=== PATIENT | female | born 1985 | race Caucasian/White ===

== ENCOUNTER → 2019-09-22 06:56 | Outpatient (CLI) | payer OTHER, SELFPAY ==
--- NOTE | 2019-09-22 | DI.US.S_ITS ---
PROCEDURE: US ABDOMEN COMPLETE INDICATIONS: DYSPEPSIA TECHNIQUE: Real-time scanning was performed of the abdominal and retroperitoneal organs, with image documentation. COMPARISON: None. FINDINGS: Liver: Liver is normal in size and homogeneous in echotexture. Gallbladder: Gallbladder is unremarkable. Wall thickness is within normal limits measuring 1.7. Biliary ducts: Intrahepatic bile ducts are non-dilated. Extrahepatic bile duct caliber measures 3.4 mm. Normal is 6-7 mm or less in diameter, or 10 mm or less post-cholecystectomy. Pancreas: Visualized portions of the pancreas are sonographically normal. Spleen: Spleen is normal in size and homogeneous in echotexture. Kidneys: Kidneys are normal in size and echotexture. Right kidney measures 11.6 cm long; left kidney measures 10.3 cm long. No hydronephrosis or nephrolithiasis. No solid masses. Aorta: Visualized aorta is normal in caliber at less than 3 cm. Iliacs: Proximal common iliac arteries are normal in caliber at less than 2.5 cm. IVC: Intrahepatic inferior vena cava is patent. Miscellaneous: No free abdominal fluid. IMPRESSION: Unremarkable exam. Dictated by: Tracey Faulkner M.D. on 09/22/2019 at 10:43 Approved by: Tracey Faulkner M.D. on 09/22/2019 at 10:44
== END ==
PROVIDERS: Visit Provider Family Medicine
DX: R10.13 Epigastric pain (principal)
CPT/HCPCS: 76700

== ENCOUNTER → 2020-11-23 10:02 | Outpatient (CLI) | payer OTHER, SELFPAY ==
--- NOTE | 2020-11-23 | DI.RAD.S_ITS ---
PROCEDURE: XR FOOT LT MIN 3V INDICATIONS: LEFT FOOT TRAUMA TECHNIQUE: 3 views of the foot were acquired. COMPARISON: None. FINDINGS: Bones: No fractures or dislocations. No suspicious bony lesions. Soft tissues: No tibiotalar joint effusion. Achilles tendon appears normal. IMPRESSION: No fracture. If the patient's symptoms do not improve recommend followup radiographs in 10 days to assess for healing sclerosis/occult injury. Dictated by: Neel Guzman M.D. on 11/23/2020 at 12:22 Approved by: Neel Guzman M.D. on 11/23/2020 at 12:35
== END ==
PROVIDERS: Referring Provider Family Medicine; Visit Provider Family Medicine
DX: S99.922A Unspecified injury of left foot, initial encounter (principal)
CPT/HCPCS: 73630

== ENCOUNTER → 2021-02-27 15:39 | Outpatient (ROUT) | payer OTHER, SELFPAY ==
[2021-02-27 16:19] LABS: COVID19 -Nasal RAPID Negative (Negative)
== END ==
PROVIDERS: Visit Provider Family Medicine
DX: Z86.16 Personal history of COVID-19 (principal)
CPT/HCPCS: 87635

== ENCOUNTER → 2021-03-02 12:22 | Outpatient (ROUT) | payer OTHER, SELFPAY ==
[2021-03-02 13:00] LABS: COVID19 -Nasal RAPID Negative (Negative)
== END ==
PROVIDERS: Visit Provider Family Medicine
DX: Z20.822 Contact with and (suspected) exposure to COVID-19 (principal)
CPT/HCPCS: 87635

== ENCOUNTER → 2021-03-27 15:18 | Outpatient (ROUT) | payer OTHER, SELFPAY ==
[2021-03-27 16:05] LABS: COVID19 -Nasal RAPID Negative (Negative)
== END ==
PROVIDERS: Visit Provider Family Medicine
DX: Z20.822 Contact with and (suspected) exposure to COVID-19 (principal)
CPT/HCPCS: 87635

== ENCOUNTER → 2022-10-30 13:25 | Outpatient (ROUT) | payer OTHER, SELFPAY ==
[2022-10-30 16:27] LABS: Influenza A - CEPHEID Flu A POSITIVE (NEGATIVE); Influenza B - CEPHEID Flu B NEGATIVE (NEGATIVE); Respiratory Syncytial Virus Negative (Negative)
[2022-10-30 16:30] LABS: COVID-19 CEPHEID 4-PLEX PCR Negative (Negative)
== END ==
PROVIDERS: Visit Provider Family Medicine
DX: R68.89 Other general symptoms and signs (principal)
CPT/HCPCS: 0241U

== ENCOUNTER 2023-07-26 10:00 | Emergency (ER) | payer OTHER, SELFPAY ==
[2023-07-26 10:04] VITALS: BP 125/76; PULSE 102; RESP 15; TEMP 36.9; O2SAT 98; BMI 30.9
--- NOTE | 2023-07-26 10:19 | ED_ITS ---
HPI - General Adult General Chief complaint: Upper Respiratory Symptoms Stated complaint: seen T-3/hurts to talk/breath/swallow/ think strep Time Seen by Provider: 07/26/23 10:13 Source: patient Mode of arrival: Ambulatory History of Present Illness HPI narrative: 37-year-old female nonsmoker without chronic medical history presents for e valuation of sore throat and known strep. She states she was at [facility]'s Emergency Department a few days ago and was told she had strep, she was given fluids and some steroids as well as 1st dose of amoxicillin and a prescription for more. She admits to having taken 4 doses of her amoxicillin and states that her throat hurts worse than it did. She is having trouble eating and drinking, she becomes dizzy, weak and lightheaded, particularly upon standing. She denies any chest pain or shortness of breath, she has mild nausea but denies any vomiting, abdominal pain or diarrhea. She has developed a few days of dysuria, frequency, and urgency as well. Related Data Allergies Allergy/AdvReac Type Severity Reaction Status Date / Time latex Allergy Verified 07/26/23 10:04 Review of Systems Review of Systems Narrative: GENERAL: See HPI HEENT: See HPI RESPIRATORY: Denies dyspnea, cough, wheezing, hemoptysis, sputum. CARDIOVASCULAR: Denies chest pain, palpitations, orthopnea, edema, GASTROINTESTINAL: Denies nausea, vomiting, abdominal pain, diarrhea, constipation, melena. : See HPI MUSCULOSKELETAL: denies weakness, joint pain, or bony pain SKIN: Denies rash, skin lesions, or other NEUROLOGIC: Denies weakness, headache, numbness, change in speech, confusion, seizures, incoordination. PSYCHIATRIC: No concerning psychosocial issues. 12 point review of systems is negative except for those stated above Patient History Social History Smoking Status: Unknown if ever smoked Smoking Status: Unknown if ever smoked alcohol intake frequency: holidays/special occasions only Substance Use Type: does not use Exam Narrative Exam Narrative: GENERAL: [37] year old patient appears stated age. Well-developed patient, in mild distress. HEAD: Atraumatic. Normocephalic. EYES: Pupils equal round and reactive. Extraocular motions intact. No scleral icterus. No injection or drainage. ENT: Dry mucous membranes Nose without bleeding, purulent drainage. Pharyngeal erythema with tonsillar swelling and exudate bilaterally, no obvious mass effect or uvular pointing to suggest abscess NECK: Trachea midline. Tender anterior lymphadenopathy CARDIOVASCULAR: Tachycardic but regular rhythm without murmurs, gallops, or rubs. RESPIRATORY: Clear to auscultation. Breath sounds equal bilaterally. No wheezes, rales, or rhonchi. GASTROINTESTINAL: Abdomen soft, non-tender, nondistended. EXTREMITIES: No edema or joint tenderness. BACK: Nontender without deformity or crepitance. No flank tenderness. NEURO: AOx3. SKIN: No rash or erythema of visible areas Initial Vital Signs Initial Vital Signs: Vital Signs Temperature 98.4 F 07/26/23 10:04 Pulse Rate 102 H 07/26/23 10:04 Respiratory Rate 15 07/26/23 10:04 Blood Pressure 125/76 07/26/23 10:04 Pulse Oximetry 98 07/26/23 10:04 Oxygen Delivery Method Room Air 07/26/23 10:04 Course Orders Ordered: ED Orders 07/26/23 11:08 Basic Metabolic Panel Stat COVID19 -Nasal RAPID Stat Complete Blood Count AUTO DIFF Stat Monotest Stat Discontinued Medications Dexamethasone (Dexamethasone 10 Mg/Ml Vial) 20 mg IV NOW ONE Stop: 07/26/23 10:38 Last Admin: 07/26/23 11:06 Dose: 20 mg Documented By: SERAFIN Sodium Chloride (Normal Saline 0.9%) 1,000 mls @ 1,000 mls/hr IV BOLUS ONE Stop: 07/26/23 11:36 Last Infusion: 07/26/23 12:21 Dose: 0 mls/hr Documented By: Admin: 07/26/23 11:06 Dose: 1,000 mls/hr Documented By: SERAFIN Ketorolac Tromethamine (Ketorolac 30 Mg/Ml Vial) 15 mg IV NOW ONE Stop: 07/26/23 10:38 Last Admin: 07/26/23 11:07 Dose: 15 mg Documented By: SERAFIN Penicillin G Benzathine (Penicillin G Benzathine 1,200,000 Unit/2 Ml Syringe) 1,200,000 unit IM NOW ONE Stop: 07/26/23 12:46 Last Admin: 07/26/23 13:02 Dose: 1,200,000 unit Documented By: JAYSON Reevaluation(s) Reevaluation #1: Patient has significant improvement after above-stated therapies Vital Signs Vital signs: Vital Signs - 8 hr 07/26/23 13:15 Pulse Rate 88 Respiratory Rate 18 Blood Pressure 115/79 Pulse Oximetry 97 Oxygen Delivery Method Room Air Medical Decision Making Lab Data 07/26/23 11:08 07/26/23 11:08 Labs: Lab Results 07/26/23 07/26/23 07/26/23 Range/Units 10:14 11:08 11:08 WBC 5.9 (4.5-11.0) X10^3/uL RBC 4.14 (4.0-5.2) X10^6/uL Hgb 13.0 (12.0-16.0) g/dL Hct 37.1 (36-46) % MCV 89.5 (80-100) fL MCH 31.4 (26-34) PG MCHC 35.0 (30-36) % RDW 12.7 (11.6-14.8) % Plt Count 247 (150-400) X10^3/uL Neut % (Auto) 61.5 (50-75) % Lymph % (Auto) 22.0 L (25-40) % [place] % (Auto) 15.5 H (3-14) % Eos % (Auto) 0.4 L (2-4) % Baso % (Auto) 0.6 (0-2) % Neut # (Auto) 3600 (1858-3518) /uL Lymph # (Auto) 1300 (8574-2060) /uL [place] # (Auto) 900 (0-900) /uL Eos # (Auto) 0 (0-450) /uL Baso # (Auto) 0 (0-100) /uL Sodium (137-145) mmol/L Potassium (3.4-5.1) mmol/L Chloride (98-107) mmol/L Carbon Dioxide (22-32) mmol/L BUN (7-17) mg/dL Creatinine (0.52-1.04) mg/dL Estimated GFR (>60) mL/min BUN/Creatinine Ratio (6-22) Glucose (70-100) mg/dL Calcium (8.4-10.2) mg/dL Urine RBC 1-5/hpf (0-5/HPF) Urine WBC 30-100/hpf H (0-5/HPF) Ur Squamous Epith Cells 10-30 /hpf H (0-5/HPF) Amorphous Sediment 2+ Urine Bacteria Moderate (10-30) H (None) Ur Culture Indicated? Specimen cultured SARS-CoV-2 (PCR) (Negative) Monoscreen Negative (Negative) 07/26/23 07/26/23 Range/Units 11:08 11:08 WBC (4.5-11.0) X10^3/uL RBC (4.0-5.2) X10^6/uL Hgb (12.0-16.0) g/dL Hct (36-46) % MCV (80-100) fL MCH (26-34) PG MCHC (30-36) % RDW (11.6-14.8) % Plt Count (150-400) X10^3/uL Neut % (Auto) (50-75) % Lymph % (Auto) (25-40) % [place] % (Auto) (3-14) % Eos % (Auto) (2-4) % Baso % (Auto) (0-2) % Neut # (Auto) (4147-8376) /uL Lymph # (Auto) (3466-6008) /uL [place] # (Auto) (0-900) /uL Eos # (Auto) (0-450) /uL Baso # (Auto) (0-100) /uL Sodium 136 L (137-145) mmol/L Potassium 3.5 (3.4-5.1) mmol/L Chloride 101 (98-107) mmol/L Carbon Dioxide 30 (22-32) mmol/L BUN 5 L (7-17) mg/dL Creatinine 0.62 (0.52-1.04) mg/dL Estimated GFR > 60 (>60) mL/min BUN/Creatinine Ratio 8.1 (6-22) Glucose 94 (70-100) mg/dL Calcium 8.6 (8.4-10.2) mg/dL Urine RBC (0-5/HPF) Urine WBC (0-5/HPF) Ur Squamous Epith Cells (0-5/HPF) Amorphous Sediment Urine Bacteria (None) Ur Culture Indicated? SARS-CoV-2 (PCR) Negative (Negative) Monoscreen (Negative) Point of Care Testing Test Results Negative Urine Dip Bedside Urine Glucose Negative Bedside Urine Bilirubin - Negative Bedside Urine Ketone - Negative Urine Specific [place] 1.010 Bedside Urine Occult Blood +/- Bedside Urine pH 6.0 Bedside Urine Protein - Negative Bedside Urine Urobilinogen - Negative Bedside Urine Nitrite - Negative Bedside Urine Leukocytes ++ 125 Esterase Point of care testing: Point of Care Testing Test Results Negative Urine Dip Bedside Urine Glucose Negative Bedside Urine Bilirubin - Negative Bedside Urine Ketone - Negative Urine Specific [place] 1.010 Bedside Urine Occult Blood +/- Bedside Urine pH 6.0 Bedside Urine Protein - Negative Bedside Urine Urobilinogen - Negative Bedside Urine Nitrite - Negative Bedside Urine Leukocytes ++ 125 Esterase MDM Narrative Medical decision making narrative: [37] year old patient presents with sore throat, dysuria, dizziness and lightheadedness Multiple etiologies for patient's symptoms considered including, but not limited to: [Strep versus mono versus retropharyngeal abscess versus peritonsillar abscess versus other] Prior Charts reviewed in our EMR Primary Historian: patient Labs reviewed and interpreted by myself: No significant abnormalities Patient with reassuring history and physical exam, multiple diagnoses considered as noted above. No mass noted on exam, no uvular pointing, patient tolerating hydration without difficulty. Significant improvement with above-stated therapies, no imaging needed at this time. No evidence of mono. Patient's symptoms improved over duration of stay with above-stated therapies. Findings and discharge diagnosis discussed with patient/family followed by verbalization of understanding Return precautions discussed with patient/family whom verbalize understanding of diagnosis and plan Discharge Plan Departure Patient Disposition: Home Clinical Impression: Strep pharyngitis, UTI (urinary tract infection) Instructions: DI for Strep Throat, DI for Urinary Tract Infection (UTI) Activity Restrictions/Additional Instructions: *You have been diagnosed with [strep throat and urinary tract infection. As we discussed your history and physical exam are reassuring as are the labs. At this time there is no indication that you have an abscess in your throat, no need for advanced imaging.] *What to do: *Please continue to take your regular medications as directed. [ ] New medication prescriptions sent to your pharmacy: [ ] [ ] New medication written as a paper prescription [ ] No new medications given *Please follow up with your primary care provider in 2-3 days, call for an appointment. Let them know you were seen in the Emergency Department and that we ask that you be seen in follow up. We will electronically transmit a record of today's note if your PCP is in our system *If you do not have a primary care provider please contact the [facility] Resource line at [phone]. They will ask some questions about your medical history and help get you set up with a doctor in the community. *Return to Emergency Department if you should have any new, worsening or concerning symptoms, such as [fever greater than 101 F, shaking chills, worsening pain, persistent vomiting or other bothersome symptoms] Referrals: Annie Curtis MD [Primary Care Provider] - Stand Alone Forms: Patient Portal/API, Work Release Note
[2023-07-26 10:34] LABS: RBC Urine 1-5/HPF (0-5/HPF); WBC Urine 30-100/HPF (0-5/HPF)
[2023-07-26 10:35] LABS: Amorphous Sediment Urine 2+; Bacteria Urine Moderate (10-30); Culture Indicated Urine Specimen Cultured; Squamous Epithelial Cell Urine 10-30 /HPF (0-5/HPF)
[2023-07-26] MEDS: SODIUM CHLORIDE 0.9% 1,000 ML 1000 ML IV (11:06)
[2023-07-26] MEDS: DEXAMETHASONE 10 MG/ML VIAL 20 MG IV (11:06)
[2023-07-26] MEDS: KETOROLAC 30 MG/ML VIAL 15 MG IV (11:07)
[2023-07-26 11:22] LABS: Add Manual Diff / Slide Review NO; Basophils Absolute Auto 0 /uL (0-100); Basophils Percent Auto 0.6 % (0-2); Eosinophils Absolute Auto 0 /uL (0-450); Eosinophils Percent Auto 0.4 % (2-4); Hematocrit 37.1 % (36-46); Lymphocytes Absolute Auto 1300 /uL (1100-4500); Mean Corpuscular Hemoglobin 31.4 PG (26-34); Mean Corpuscular Volume 89.5 fL (80-100); Monocytes Absolute Auto 900 /uL (0-900); Monocytes Percent Auto 15.5 % (3-14); Neutrophils Absolute Auto 3600 /uL (1500-7000); Neutrophils Percent Auto 61.5 % (50-75); Platelet Count 247 X10^3/uL (150-400); Red Blood Cell Count 4.14 X10^6/uL (4.0-5.2); Red Cell Distribution Width 12.7 % (11.6-14.8); White Blood Cell Count 5.9 X10^3/uL (4.5-11.0)
[2023-07-26 11:39] LABS: Monotest Negative (Negative)
[2023-07-26 11:40] LABS: BUN Creatinine Ratio 8.1 (6-22); Blood Urea Nitrogen 5 mg/dL (7-17); Calcium 8.6 mg/dL (8.4-10.2); Carbon Dioxide 30 mmol/L (22-32); Chloride 101 mmol/L (98-107); Estimated Glomerular Filt Rate > 60 mL/min (>60); Glucose 94 mg/dL (70-100); HEMOLYSIS < 15 (0-50); Potassium 3.5 mmol/L (3.4-5.1); Sodium 136 mmol/L (137-145)
[2023-07-26 11:48] LABS: COVID19 -Nasal RAPID Negative (Negative)
[2023-07-26] MEDS: PENICILLIN G BENZATHINE 1,200,000 UNIT/2 ML SYRINGE 1200000 UNIT IM (13:02)
[2023-07-26 13:15] VITALS: BP 115/79; PULSE 88; RESP 18; O2SAT 97
== END 2023-07-26 13:15 | disposition home or self-care (01) ==
PROVIDERS: Emergency Provider Emergency Medicine; PCP Family Medicine
DX: J02.0 Streptococcal pharyngitis (principal); N39.0 Urinary tract infection, site not specified; Z20.822 Contact with and (suspected) exposure to COVID-19
CPT/HCPCS: 36415; 80048; 81003; 81015; 81025; 85025; 86318; 87086; 87635; 96361; 96372; 96374; 96375; 99284; C9803; J0561; J1100; J1885

== ENCOUNTER → 2023-08-26 12:15 | Outpatient (CLI) | payer OTHER, SELFPAY ==
--- NOTE | 2023-08-26 | DI.US.S_ITS ---
PROCEDURE: US RENAL COMPLETE INDICATIONS: ACUTE PYELONEPHRITIS TECHNIQUE: Real-time scanning was performed of the kidneys and bladder, with image documentation. COMPARISON: None. FINDINGS: Kidneys: Kidneys are normal in size. Right kidney measures 9.2 cm long; left kidney measures 9.2 cm long. Right renal cortical thickness is 2.4 cm; left renal cortical thickness is 1.7 cm. Renal cortical echotexture is normal. No hydronephrosis. 7 mm shadowing echogenic focus suspicious for nonobstructing stone. Bladder: Pre-void bladder volume is 111 mL. Post-void residual is unable to be assessed L. Pre-void images demonstrate no intraluminal masses or stones. On pre-void images, neither ureteral jets are noted with color Doppler interrogation. (Of note, ureteral jets may not be detectable in up to 25% of cases due to insufficient differences in specific gravity between ureteral and bladder urine). Miscellaneous: No free pelvic fluid. IMPRESSION: 7 mm nonobstructing right renal stone; otherwise grossly normal appearance of the kidneys. If acute pyelonephritis is of clinical concern, consider CT. Dictated by: Dao DE LEON Interpreted: Galdino Menard MD on 08/26/2023 at 13:10 Transcribed by: ERICK on 08/26/2023 at 13:14 Approved by: Galdino Menard M.D. on 08/27/2023 at 14:15
== END ==
LOC: US 12:15
PROVIDERS: PCP Family Medicine; Referring Provider Family Medicine; Visit Provider Family Medicine
DX: N10 Acute pyelonephritis (principal); N20.0 Calculus of kidney
CPT/HCPCS: 76770

== ENCOUNTER 2024-03-26 10:44 | Emergency (ER) | payer OTHER, MEDICAID, SELFPAY ==
[2024-03-26 10:47] VITALS: BP 112/77; PULSE 81; RESP 14; TEMP 36.9; O2SAT 100; BMI 32.4
[2024-03-26 11:47] LABS: Add Manual Diff / Slide Review YES; Hematocrit 39.4 % (36-46); Hemoglobin 13.5 g/dL (12.0-16.0); Mean Corpuscular HGB Conc 34.1 % (30-36); Mean Corpuscular Hemoglobin 31.5 PG (26-34); Mean Corpuscular Volume 92.3 fL (80-100); Platelet Count 252 X10^3/uL (150-400); Red Blood Cell Count 4.27 X10^6/uL (4.0-5.2); Red Cell Distribution Width 12.7 % (11.6-14.8); White Blood Cell Count 8.6 X10^3/uL (4.5-11.0)
--- NOTE | 2024-03-26 11:52 | ED.ABDPAIN ---
HPI - Abdominal Pain <Roddy Michaels PA-C - Last Filed: 03/26/24 14:27> General Chief Complaint: Abdominal Pain Stated Complaint: sent by [facility] poss kidney stones gi adb pain Time Seen by Provider: 03/26/24 11:02 Source: patient Mode of arrival: Ambulatory History of Present Illness HPI narrative: This is a 38-year-old female presents emergency department due to diarrhea which began 2 weeks ago which improve but now she was developing nausea and vomiting for the last week or so. Denies any blood in her stool or vomit. Denies any significant acute abdominal pain. Does state that she has a history of kidney stones. Denies any fevers, chest pain, shortness of breath, or any other concerning signs or symptoms. No recent travel and no abnormal foods. Has tried an elimination diet without significant relief. Related Data Previous Rx's Medication Instructions Recorded azithromycin 500 mg tablet See Rx Instructions PO .COMPLEX #3 03/26/24 tabs Allergies Allergy/AdvReac Type Severity Reaction Status Date / Time latex Allergy Verified 03/26/24 10:47 Review of Systems <EMILIE Zazueta Last Filed: 03/26/24 14:27> Review of Systems Narrative: GENERAL: Denies chills, fatigue, malaise, fever, sweats. HEENT: Denies sinus pain, ear pain, sore throat, difficulty swallowing, dizziness. RESPIRATORY: Denies dyspnea, cough, wheezing, hemoptysis, sputum. CARDIOVASCULAR: Denies chest pain, palpitations, orthopnea, edema, GASTROINTESTINAL: Reports nausea, vomiting, diarrhea Denies abdominal pain, , constipation, melena. : Denies dysuria, frequency, incontinence, hematuria, urinary retention. MUSCULOSKELETAL: denies weakness, joint pain, or bony pain SKIN: Denies rash, skin lesions, or other NEUROLOGIC: Denies weakness, headache, numbness, change in speech, confusion, seizures, incoordination. PSYCHIATRIC: No concerning psychosocial issues. 12 point review of systems is negative except for those stated above Patient History <Roddy Michaels PA-C - Last Filed: 03/26/24 14:27> Social History Smoking Status: Unknown if ever smoked Smoking Status: Unknown if ever smoked alcohol intake frequency: holidays/special occasions only Substance Use Type: does not use Exam <EMILIE Zazueta Last Filed: 03/26/24 14:27> Narrative Exam Narrative: GENERAL: Well-developed patient, in mild distress. HEAD: Atraumatic. Normocephalic. EYES: Pupils equal round and reactive. Extraocular motions intact. No scleral icterus. No injection or drainage. ENT: Nose without bleeding, purulent drainage. Throat without erythema, tonsillar hypertrophy or exudate. Airway patent. NECK: Trachea midline. Non tender EXTREMITIES: No edema or joint tenderness. NEURO: AOx3. SKIN: No rash or erythema of visible areas Abdomen: No significant abdominal tenderness to palpation Initial Vital Signs Initial Vital Signs: Vital Signs Temperature 98.5 F 03/26/24 10:47 Pulse Rate 81 03/26/24 10:47 Respiratory Rate 14 03/26/24 10:47 Blood Pressure 112/77 03/26/24 10:47 Pulse Oximetry 100 03/26/24 10:47 Oxygen Delivery Method Room Air 03/26/24 10:47 <Noemi Costa DO - Last Filed: 03/27/24 10:37> Initial Vital Signs Initial Vital Signs: Vital Signs Temperature 98.5 F 03/26/24 10:47 Pulse Rate 81 03/26/24 10:47 Respiratory Rate 14 03/26/24 10:47 Blood Pressure 112/77 03/26/24 10:47 Pulse Oximetry 100 03/26/24 10:47 Oxygen Delivery Method Room Air 03/26/24 10:47 Course <Roddy Michaels PA-C - Last Filed: 03/26/24 14:27> Orders Ordered: Discontinued Medications Ondansetron HCl (Ondansetron 4 Mg/2 Ml Inj) 4 mg IV NOW PRN PRN Reason: Nausea And Vomiting Vital Signs Vital signs: Vital Signs - 8 hr 03/26/24 10:47 03/26/24 13:14 Temperature 98.5 F 98.4 F Pulse Rate 81 84 Respiratory Rate 14 14 Blood Pressure 112/77 105/60 Pulse Oximetry 100 100 Oxygen Delivery Method Room Air Room Air <DO Ashkan Herr Last Filed: 03/27/24 10:37> Orders Ordered: Discontinued Medications Ondansetron HCl (Ondansetron 4 Mg/2 Ml Inj) 4 mg IV NOW PRN PRN Reason: Nausea And Vomiting Vital Signs Vital signs: Vital Signs - 8 hr 03/26/24 10:47 03/26/24 13:14 Temperature 98.5 F 98.4 F Pulse Rate 81 84 Respiratory Rate 14 14 Blood Pressure 112/77 105/60 Pulse Oximetry 100 100 Oxygen Delivery Method Room Air Room Air MDM - Abdominal Pain <Roddy Michaels PA-C - Last Filed: 03/26/24 14:27> Lab Data 03/26/24 10:58 03/26/24 10:58 Labs: Lab Results 03/26/24 Range/Units 10:58 WBC 8.6 (4.5-11.0) X10^3/uL RBC 4.27 (4.0-5.2) X10^6/uL Hgb 13.5 (12.0-16.0) g/dL Hct 39.4 (36-46) % MCV 92.3 (80-100) fL MCH 31.5 (26-34) PG MCHC 34.1 (30-36) % RDW 12.7 (11.6-14.8) % Plt Count 252 (150-400) X10^3/uL Neut % (Auto) Not Reportable Lymph % (Auto) Not Reportable [place] % (Auto) Not Reportable Eos % (Auto) Not Reportable Baso % (Auto) Not Reportable Lymph # (Auto) Not Reportable [place] # (Auto) Not Reportable Baso # (Auto) Not Reportable Total Counted 100 Seg Neutrophils % 56.0 (38-70) % Band Neutrophils % 1.0 L (3-7) % Lymphocytes % (Manual) 9.0 L (25-45) % Atypical Lymphs % 19.0 H ( - 0) % Monocytes % (Manual) 8.0 (2-11) % Eosinophils % (Manual) 7.0 H (2-4) % Neutrophils # (Manual) 4902 (0701-4082) /uL RBC Morphology Normal morphology Sodium 136 L (137-145) mmol/L Potassium 3.9 (3.4-5.1) mmol/L Chloride 105 (98-107) mmol/L Carbon Dioxide 29 (22-32) mmol/L BUN 13 (7-17) mg/dL Creatinine 0.66 (0.52-1.04) mg/dL Estimated GFR > 60 (>60) mL/min BUN/Creatinine Ratio 19.7 (6-22) Glucose 86 (70-100) mg/dL Calcium 8.8 (8.4-10.2) mg/dL Total Bilirubin 1.1 (0.2-1.3) mg/dL AST 29 (14-36) IU/L ALT 27 (<35) IU/L Alkaline Phosphatase 60 (38-126) U/L Total Protein 7.2 (6.3-8.2) g/dL Albumin 4.3 (3.5-5.0) g/dL Globulin 2.9 (1.7-4.1) g/dL Albumin/Globulin Ratio 1.5 (1.0-2.8) Lipase 100 (23-300) U/L Point of care testing: Point of Care Testing Test Results Negative Urine Dip Bedside Urine Glucose Negative Bedside Urine Bilirubin - Negative Bedside Urine Ketone - Negative Urine Specific [place] 1.015 Bedside Urine Occult Blood - Negative Bedside Urine pH 7.0 Bedside Urine Protein - Negative Bedside Urine Urobilinogen - Negative Bedside Urine Nitrite - Negative Bedside Urine Leukocytes - Negative Esterase Imaging Data CT scan - abdomen/pelvis: Radiologist's Impression: [place] [address] CT Scan Report Signed Patient: Tika Mendoza MR#: [id number] : 1985 Acct:[id number] Age/Sex: 38 / F Date of Service: 03/26/24 Loc: Accession Number: [id number] Procedure: CT abdomen pelvis w con Ordering Provider: Roddy Michaels P.A-C PROCEDURE: CT ABDOMEN PELVIS W CON INDICATIONS: N/V/D TECHNIQUE: After the administration of intravenous contrast, axial sections acquired from the lung bases to the pubic symphysis. Coronal and sagittal reformats were performed. For radiation dose reduction, the following was used: automated exposure control, adjustment of mA and/or kV according to patient size. COMPARISON: None. FINDINGS: Image quality: Diagnostic. Lower Chest: No significant findings. ABDOMEN: Liver: No solid mass. Subcentimeter hypoattenuating lesion in segment 4, too small to characterize by CT. Gallbladder: Gallbladder sludge versus small stones. No wall thickening or pericholecystic edema to suggest acute cholecystitis. Biliary ducts: No biliary dilation. Pancreas: No ductal dilation. Spleen: Size is within normal limits. Adrenal Glands: No adrenal nodules. Kidneys and Ureters: No hydronephrosis. No solid mass. No complex renal cystic lesion which requires follow up. Stomach and Bowel: Normal colonic caliber, without significant wall thickening. Normal appendix. No significant diverticular disease. Peritoneum: No abnormal intraperitoneal fluid. No free air. Ventral Wall: No significant ventral hernia. Abdominal Nodes: No retroperitoneal or mesenteric adenopathy by size criteria. Vessels: Aorta and inferior vena cava are normal in size. PELVIS: Pelvic Organs: Right-sided corpus luteum. Bladder: No bladder wall thickening, accounting for underdistention. Pelvic Nodes: No enlarged lymph nodes. Miscellaneous: No inguinal hernias are seen. Bones: No aggressive osseous abnormality. IMPRESSION: No acute abnormality to explain the patient's symptoms. No bowel obstruction or colitis. Dictated by: Hemanth Kaye M.D. on 03/26/2024 at 14:03 Approved by: Hemanth Kaye M.D. on 03/26/2024 at 14:08 [facility] Narrative Medical decision making narrative: ED course: This is a 38-year-old female presents to the emergency department due to a 1 week history of diarrhea which has not improved and now a 1 week history of nausea and vomiting. She was denying any significant abdominal pain. Lab work was completely reassuring, shared decision-making utilized and CT abdomen and pelvis was ordered on patient request. CT abdomen and pelvis was unremarkable. We will treat for possible bacterial gastroenteritis with oral antibiotics. There was no blood in the stool or vomit. UA was unremarkable. Stool testing ordered but patient was unable to give a stool sample. CC: Nausea vomiting diarrhea Complicating co-morbidities: None Data collected from: Previous notes Medical records reviewed: Patient was seen here about 8 months ago due to sore throat. No chronic medical history. Patient was given antibiotics and discharge. Differential considered, but not limited to: Viral gastroenteritis, bacterial gastroenteritis, C diff, Exam documented above, pertinent findings include: No abdominal tenderness to palpation Lab Test results independently reviewed as above. Pertinent findings: Lab work showed no significant abnormalities Imaging studies independently reviewed: CT abdomen and pelvis unremarkable Scores Used: None MIPS Elements: None Consultations: None Treatments: None Re-evaluations: None Discussion: Discussed plan with the patient was comfortable with the plan Diagnosis: Bacterial gastroenteritis Disposition: see below, along with detailed discharge instructions that have been reviewed with patient as well as indications for ED re-evaluation and additional outpatient follow up <Noemi Costa, - Last Filed: 03/27/24 10:37> Lab Data Labs: Lab Results 03/26/24 Range/Units 10:58 WBC 8.6 (4.5-11.0) X10^3/uL RBC 4.27 (4.0-5.2) X10^6/uL Hgb 13.5 (12.0-16.0) g/dL Hct 39.4 (36-46) % MCV 92.3 (80-100) fL MCH 31.5 (26-34) PG MCHC 34.1 (30-36) % RDW 12.7 (11.6-14.8) % Plt Count 252 (150-400) X10^3/uL Neut % (Auto) Not Reportable Lymph % (Auto) Not Reportable [place] % (Auto) Not Reportable Eos % (Auto) Not Reportable Baso % (Auto) Not Reportable Lymph # (Auto) Not Reportable [place] # (Auto) Not Reportable Baso # (Auto) Not Reportable Total Counted 100 Seg Neutrophils % 56.0 (38-70) % Band Neutrophils % 1.0 L (3-7) % Lymphocytes % (Manual) 9.0 L (25-45) % Atypical Lymphs % 19.0 H ( - 0) % Monocytes % (Manual) 8.0 (2-11) % Eosinophils % (Manual) 7.0 H (2-4) % Neutrophils # (Manual) 4902 (4116-1241) /uL RBC Morphology Normal morphology Sodium 136 L (137-145) mmol/L Potassium 3.9 (3.4-5.1) mmol/L Chloride 105 (98-107) mmol/L Carbon Dioxide 29 (22-32) mmol/L BUN 13 (7-17) mg/dL Creatinine 0.66 (0.52-1.04) mg/dL Estimated GFR > 60 (>60) mL/min BUN/Creatinine Ratio 19.7 (6-22) Glucose 86 (70-100) mg/dL Calcium 8.8 (8.4-10.2) mg/dL Total Bilirubin 1.1 (0.2-1.3) mg/dL AST 29 (14-36) IU/L ALT 27 (<35) IU/L Alkaline Phosphatase 60 (38-126) U/L Total Protein 7.2 (6.3-8.2) g/dL Albumin 4.3 (3.5-5.0) g/dL Globulin 2.9 (1.7-4.1) g/dL Albumin/Globulin Ratio 1.5 (1.0-2.8) Lipase 100 (23-300) U/L Point of care testing: Point of Care Testing Test Results Negative Urine Dip Bedside Urine Glucose Negative Bedside Urine Bilirubin - Negative Bedside Urine Ketone - Negative Urine Specific [place] 1.015 Bedside Urine Occult Blood - Negative Bedside Urine pH 7.0 Bedside Urine Protein - Negative Bedside Urine Urobilinogen - Negative Bedside Urine Nitrite - Negative Bedside Urine Leukocytes - Negative Esterase Discharge Plan Departure Patient Disposition: Home Clinical Impression: Gastroenteritis Instructions: DI for Bacterial Gastroenteritis -- Adult Activity Restrictions/Additional Instructions: Thank you for coming to the [facility] Emergency Department today. As we discussed your lab work and imaging were very reassuring. There was no evidence of any kind of organ abnormalities or electrolyte abnormalities. His maybe due to bacterial gastroenteritis. Please take the oral antibiotics as prescribed.. Also recommend the bland diet that you are currently doing as well. I sent the medication to [facility] in [place]. Please return to the emergency department if you develop any significant abdominal pain, or any other concerning signs or symptoms. I hope you feel better soon. Please follow up with your primary care provider within a week if your symptoms continue. If you do not have a primary care provider please contact the [facility] Resource line at [phone]. They will ask some questions about your medical history and help you get set up with a provider in the community. Prescriptions: New azithromycin 500 mg tablet See Rx Instructions .ROUTE .COMPLEX Qty: 3 0RF Rx Instructions: For 500 mg dose pack: take 500 mg once daily for 3 days Referrals: Annie Curtis MD [Primary Care Provider] - Stand Alone Forms: Patient Portal/API ED Sign-out <Noemi Costa DO - Last Filed: 03/27/24 10:37> Cosign ED Attending Sergeature Attestation: I was immediately available in the department for consultation.
[2024-03-26 12:01] LABS: Neutrophils Absolute Manual 4902 /uL (3000-5900); Total Cells Counted 100
[2024-03-26 12:02] LABS: RBC Morphology Normal Morphology
[2024-03-26 12:05] LABS: Alanine Aminotransferase 27 IU/L (<35); Alkaline Phosphatase 60 U/L (38-126); Aspartate Aminotransferase 29 IU/L (14-36); BUN Creatinine Ratio 19.7 (6-22); Bilirubin Total 1.1 mg/dL (0.2-1.3); Blood Urea Nitrogen 13 mg/dL (7-17); Calcium 8.8 mg/dL (8.4-10.2); Carbon Dioxide 29 mmol/L (22-32); Chloride 105 mmol/L (98-107); Estimated Glomerular Filt Rate > 60 mL/min (>60); Glucose 86 mg/dL (70-100); HEMOLYSIS < 15 (0-50); Potassium 3.9 mmol/L (3.4-5.1); Sodium 136 mmol/L (137-145)
[2024-03-26 12:06] LABS: Albumin 4.3 g/dL (3.5-5.0); Albumin Globulin Ratio 1.5 (1.0-2.8); Globulin 2.9 g/dL (1.7-4.1); Lipase 100 U/L (23-300); Total Protein 7.2 g/dL (6.3-8.2)
--- NOTE | 2024-03-26 12:35 | DI.CT.S_ITS ---
PROCEDURE: CT ABDOMEN PELVIS W CON INDICATIONS: N/V/D TECHNIQUE: After the administration of intravenous contrast, axial sections acquired from the lung bases to the pubic symphysis. Coronal and sagittal reformats were performed. For radiation dose reduction, the following was used: automated exposure control, adjustment of mA and/or kV according to patient size. COMPARISON: None. FINDINGS: Image quality: Diagnostic. Lower Chest: No significant findings. ABDOMEN: Liver: No solid mass. Subcentimeter hypoattenuating lesion in segment 4, too small to characterize by CT. Gallbladder: Gallbladder sludge versus small stones. No wall thickening or pericholecystic edema to suggest acute cholecystitis. Biliary ducts: No biliary dilation. Pancreas: No ductal dilation. Spleen: Size is within normal limits. Adrenal Glands: No adrenal nodules. Kidneys and Ureters: No hydronephrosis. No solid mass. No complex renal cystic lesion which requires follow up. Stomach and Bowel: Normal colonic caliber, without significant wall thickening. Normal appendix. No significant diverticular disease. Peritoneum: No abnormal intraperitoneal fluid. No free air. Ventral Wall: No significant ventral hernia. Abdominal Nodes: No retroperitoneal or mesenteric adenopathy by size criteria. Vessels: Aorta and inferior vena cava are normal in size. PELVIS: Pelvic Organs: Right-sided corpus luteum. Bladder: No bladder wall thickening, accounting for underdistention. Pelvic Nodes: No enlarged lymph nodes. Miscellaneous: No inguinal hernias are seen. Bones: No aggressive osseous abnormality. IMPRESSION: No acute abnormality to explain the patient's symptoms. No bowel obstruction or colitis. Dictated by: Hemanth Kaye M.D. on 03/26/2024 at 14:03 Approved by: Hemanth Kaye M.D. on 03/26/2024 at 14:08
[2024-03-26 13:14] VITALS: BP 105/60; PULSE 84; RESP 14; TEMP 36.9; O2SAT 100
[2024-03-26 14:32] VITALS: PULSE 78; RESP 18; O2SAT 98
== END 2024-03-26 14:42 | disposition home or self-care (01) ==
PROVIDERS: Emergency Medicine; Emergency Provider Physician Assistant Medical; PCP Family Medicine
DX: K52.9 Noninfective gastroenteritis and colitis, unspecified (principal); R11.2 Nausea with vomiting, unspecified
CPT/HCPCS: 36415; 74177; 80053; 81003; 81025; 83690; 85007; 85025; 99284; Q9967

== ENCOUNTER 2024-05-19 02:30 | Emergency (ER) | payer OTHER, MEDICAID, SELFPAY ==
[2024-05-19] VITALS (10 sets, daily range): BP systolic 97–121; BP diastolic 63–71; PULSE 66–84; RESP 18; TEMP 36.6; O2SAT 96–99; BMI 31.9
--- NOTE | 2024-05-19 02:40 | PC.NURSE ---
pt c/o aching in the right hip and pelvis area for a few days which has increased in severity waking her up this am, pt did not take anything for the pain prior to coming to the ED, movement increases pain, pt denies any other s/s
--- NOTE | 2024-05-19 02:44 | DI.CT.S_ITS ---
PROCEDURE: CT KIDNEY URETER BLADDER (KUB) INDICATIONS: RLQ ABD PAIN, HX STONES TECHNIQUE: Axial sections were acquired from the lung bases to the pubic symphysis. Coronal and sagittal reformats were performed. For radiation dose reduction, the following was used: automated exposure control, adjustment of mA and/or kV according to patient size. COMPARISON: None. FINDINGS: Image quality: Diagnostic. Lower Chest: No significant findings. URINARY: Right Kidney: No stones or hydronephrosis. Right Ureter: No hydroureter. Left Kidney: No stones or hydronephrosis. Left Ureter: No hydroureter. Bladder: Normal wall thickness. No stones. ABDOMEN: Liver: No contour-deforming solid mass. Gallbladder: No radiopaque gallstones or wall thickening. Biliary ducts: No biliary dilation. Pancreas: No ductal dilation. Spleen: Size is within normal limits. Adrenal Glands: No adrenal nodules. Stomach and Bowel: Normal colonic caliber, without significant wall thickening. Peritoneum: No abnormal intraperitoneal fluid. No free air. Ventral Wall: No hernia. Abdominal Nodes: No enlarged retroperitoneal or mesenteric lymph nodes. Vessels: Aorta and inferior vena cava are normal in size. PELVIS: Pelvic Organs: Unremarkable. Pelvic Nodes: Unremarkable. Miscellaneous: No inguinal hernias are seen. Bones: Unremarkable. IMPRESSION: No obstructing stones or hydronephrosis. No visualized acute intra-abdominal or pelvic process. Dictated by: Tracey Faulkner M.D. on 05/19/2024 at 9:10 Approved by: Tracey Faulkner M.D. on 05/19/2024 at 9:14
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
[2024-05-19] MEDS: KETOROLAC 30 MG/ML VIAL 15 MG IV (02:57)
[2024-05-19] MEDS: ONDANSETRON 4 MG/2 ML INJ IV (02:57)
[2024-05-19 03:08] LABS: Add Manual Diff / Slide Review NO; Basophils Absolute Auto 100 /uL (0-100); Basophils Percent Auto 1.2 % (0-2); Eosinophils Absolute Auto 200 /uL (0-450); Eosinophils Percent Auto 2.6 % (2-4); Hematocrit 39.6 % (36-46); Hemoglobin 13.3 g/dL (12.0-16.0); Lymphocytes Absolute Auto 3300 /uL (1100-4500); Mean Corpuscular HGB Conc 33.7 % (30-36); Mean Corpuscular Hemoglobin 31.4 PG (26-34); Mean Corpuscular Volume 93.2 fL (80-100); Monocytes Absolute Auto 900 /uL (0-900); Monocytes Percent Auto 12.4 % (3-14); Neutrophils Absolute Auto 3000 /uL (1500-7000); Neutrophils Percent Auto 39.8 % (50-75); Platelet Count 282 X10^3/uL (150-400); Red Blood Cell Count 4.25 X10^6/uL (4.0-5.2); White Blood Cell Count 7.5 X10^3/uL (4.5-11.0)
[2024-05-19 03:13] LABS: Alanine Aminotransferase 20 IU/L (<35); Albumin 4.4 g/dL (3.5-5.0); Albumin Globulin Ratio 1.5 (1.0-2.8); Alkaline Phosphatase 58 U/L (38-126); Aspartate Aminotransferase 24 IU/L (14-36); BUN Creatinine Ratio 19.2 (6-22); Bilirubin Total 0.7 mg/dL (0.2-1.3); Blood Urea Nitrogen 15 mg/dL (7-17); Calcium 8.8 mg/dL (8.4-10.2); Carbon Dioxide 28 mmol/L (22-32); Chloride 104 mmol/L (98-107); Estimated Glomerular Filt Rate > 60 mL/min (>60); Globulin 2.9 g/dL (1.7-4.1); Glucose 95 mg/dL (70-100); HEMOLYSIS < 15 (0-50); Lactate (Lactic Acid) 0.5 mmol/L (0.7-2.1); Potassium 3.8 mmol/L (3.4-5.1); Sodium 137 mmol/L (137-145); Total Protein 7.3 g/dL (6.3-8.2)
[2024-05-19] MEDS: ACETAMINOPHEN IV 1,000 MG/100 ML VIAL 400 MG IV (03:52)
--- NOTE | 2024-05-19 04:45 | DI.US.S_ITS ---
PROCEDURE: US PELVIC COMPLETE INDICATIONS: RIGHT PELVIC/HIP PAIN TECHNIQUE: Real-time scanning was performed of the pelvic organs, with image documentation. Additional endovaginal scanning was necessary due to incomplete visualization of the adnexal and endometrial structures by transabdominal scanning. Color and spectral Doppler of the ovaries was performed. COMPARISON: None. FINDINGS: Uterus: Uterus is anteverted and normal in size at 10.2 x 4.9 x 7.2 cm. The myometrium is homogeneous. The endometrium measures 11 mm combined thickness. Ovaries: The right ovary measures 1.9 x 3.8 x 1.9 cm, with a calculated ovarian volume of 7 cc. The left ovary measures 2.5 x 1.6 x 1.8 cm, with a calculated ovarian volume of 3.9 cc. The ovaries have a normal sonographic appearance. Less than 12 follicles can be seen in each ovary. No adnexal masses are seen. Normal arterial waveforms. Other: No pathologic free abdominal or pelvic fluid. IMPRESSION: Normal ovarian ultrasound. Normal size and appearance of the ovaries with normal arterial waveforms. Findings do not suggest ovarian torsion. We strive to produce accurate, complete, and clear reports of imaging services. To assist us in improving patient care, this report was composed using standard report templates and voice recognition software. Therefore, it may contain abnormal punctuation, insertions and/or omissions. Occasional wrong-word or sound-alike substitutions may occur. Though we review the report and make efforts to correct it, we do recommend that the report be read carefully in proper context to recognize any text inaccuracies. Dictated by: Hemanth Kaye M.D. on 05/19/2024 at 8:13 Approved by: Hemanth Kaye M.D. on 05/19/2024 at 8:15
== END 2024-05-19 06:41 | disposition home or self-care (01) ==
PROVIDERS: Emergency Provider Emergency Medicine; PCP Family Medicine
DX: M25.551 Pain in right hip (principal); R10.31 Right lower quadrant pain; Z87.442 Personal history of urinary calculi
CPT/HCPCS: 36415; 74176; 76830; 76856; 80053; 81003; 81025; 83605; 85025; 93975; 96365; 96375; 99284; J0136; J1885; J2405

== ENCOUNTER 2025-05-06 21:39 | Emergency (ER) | payer OTHER, SELFPAY ==
[2025-05-06 21:43] VITALS: BP 133/81; PULSE 72; RESP 18; TEMP 36.4; O2SAT 97; BMI 36.8
--- NOTE | 2025-05-06 21:54 | DI.US.S_ITS ---
PROCEDURE: US ABDOMEN LIMITED INDICATIONS: RIGHT UPPER QUADRANT PAIN TECHNIQUE: Real-time scanning was performed of the abdominal and retroperitoneal organs, with image documentation. COMPARISON: [facility], , US ABDOMEN COMPLETE, 09/22/2019, 7:21. FINDINGS: Liver: The liver demonstrates diffusely increased echotexture without focal abnormalities consistent with chronic hepatocellular disease/hepatic steatosis. Gallbladder: Gallbladder is normal in sonographic appearance without gallstones, gallbladder wall thickening, pericholecystic fluid, or abnormal sonographic Ruiz's. Biliary ducts: Intrahepatic bile ducts are non-dilated. Extrahepatic bile duct caliber measures 3 mm. Normal is 6-7 mm or less in diameter, or 10 mm or less post-cholecystectomy. Pancreas: Visualized portions of the pancreas are sonographically normal. Kidneys: Kidneys are normal in size and echotexture. Right kidney measures 11.7 cm long; no hydronephrosis or nephrolithiasis. No solid masses. Incidental note of a simple right renal cyst measuring 1.2 cm. Miscellaneous: No free abdominal fluid. IMPRESSION: Mild hepatic steatosis. No focal intrahepatic lesions. Normal sonographic evaluation of the gallbladder. No evidence for obstructive uropathy or nephrolithiasis of the right kidney. Dictated by: Salazar Prajapati M.D. on 05/06/2025 at 22:34 Approved by: Salazar Prajapati M.D. on 05/06/2025 at 22:37
[2025-05-06 22:16] LABS: Add Manual Diff / Slide Review NO; Basophils Absolute Auto 100 /uL (0-100); Basophils Percent Auto 0.9 % (0-2); Eosinophils Absolute Auto 1100 /uL (0-450); Eosinophils Percent Auto 12.5 % (2-4); Hematocrit 39.3 % (36-46); Hemoglobin 13.7 g/dL (12.0-16.0); Lymphocytes Absolute Auto 3100 /uL (1100-4500); Lymphocytes Percent Auto 35.3 % (25-40); Mean Corpuscular HGB Conc 34.8 % (30-36); Mean Corpuscular Hemoglobin 32.3 PG (26-34); Mean Corpuscular Volume 92.8 fL (80-100); Monocytes Absolute Auto 1100 /uL (0-900); Monocytes Percent Auto 12.2 % (3-14); Neutrophils Absolute Auto 3400 /uL (1500-7000); Neutrophils Percent Auto 39.1 % (50-75); Platelet Count 295 X10^3/uL (150-400); Red Blood Cell Count 4.24 X10^6/uL (4.0-5.2); White Blood Cell Count 8.7 X10^3/uL (4.5-11.0)
[2025-05-06 22:28] LABS: Alanine Aminotransferase 32 IU/L (<35); Albumin 4.4 g/dL (3.5-5.0); Albumin Globulin Ratio 1.5 (1.0-2.8); Alkaline Phosphatase 86 U/L (38-126); Aspartate Aminotransferase 30 IU/L (14-36); BUN Creatinine Ratio 17.6 (6-22); Bilirubin Total 0.7 mg/dL (0.2-1.3); Blood Urea Nitrogen 15 mg/dL (7-17); Calcium 9.4 mg/dL (8.4-10.2); Carbon Dioxide 29 mmol/L (22-32); Chloride 102 mmol/L (98-107); Estimated Glomerular Filt Rate > 60 mL/min (>60); Globulin 2.9 g/dL (1.7-4.1); Glucose 97 mg/dL (70-99); HEMOLYSIS < 15 (0-50); Potassium 4.1 mmol/L (3.4-5.1); Sodium 137 mmol/L (137-145); Total Protein 7.3 g/dL (6.3-8.2)
--- NOTE | 2025-05-06 22:30 | ED.GENADULT ---
HPI - General Adult General Chief complaint: Abdominal Pain Stated complaint: Abdominal Pain Time Seen by Provider: 05/06/25 22:17 Source: patient Mode of arrival: Ambulatory History of Present Illness HPI narrative: 39-year-old woman 2 months no other significant medical problems presents with the acute abdominal pain that started earlier today. 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 She has been having occasional episodes of diarrhea without blood or other concerns. No chest pain or palpitations. Related Data Previous Rx's ?Medication ?Instructions ?Recorded azithromycin 500 mg tablet See Rx Instructions PO .COMPLEX #3 03/26/24 tabs cyclobenzaprine 10 mg tablet 10 mg PO TID PRN muscle spasm #30 05/19/24 tabs methylprednisolone 4 mg tablets in See Rx Instructions PO .COMPLEX 05/19/24 a dose pack (Medrol (German)) #21 ea Allergies Allergy/AdvReac Type Severity Reaction Status Date / Time latex Allergy Verified 03/26/24 10:47 Review of Systems Review of Systems Narrative: Pertinent positive and negative findings as per HPI Patient History Smoking Status: Never smoker alcohol intake frequency: holidays/special occasions only Exam Initial Vital Signs Initial Vital Signs: Vital Signs Temperature 97.5 F L 05/06/25 21:43 Pulse Rate 72 05/06/25 21:43 Respiratory Rate 18 05/06/25 21:43 Blood Pressure 133/81 05/06/25 21:43 Pulse Oximetry 97 05/06/25 21:43 Oxygen Delivery Method Room Air 05/06/25 21:43 General: Healthy appearing, uncomfortable but able to give a complete and coherent history. Well-nourished well-developed HEENT: Moist mucous membranes, normal sclera with reactive pupils, Respiratory: Lungs are clear to auscultation, no wheezing no rales no rhonchi. Full and symmetrical air movement Cardiac: Regular rate and rhythm no murmurs no bruits Abdomen: Soft, diffusely tender, more in the RUQ, no rebound or guarding, no flank pain Skin: Warm and dry, no rashes Neurologic: Grossly neurologically intact with no obvious asymmetries or abnormalities Extremities: No trauma, well perfused Psych: Cooperative, appropriate insight and affect Course Orders Ordered: ED Orders 05/06/25 21:54 US abdomen limited Stat 05/06/25 21:58 Urine Microscopic Stat 05/06/25 22:08 CBC Auto Diff [Complete Blood Count AUTO DIFF] Stat CMP [Comprehensive Metabolic Panel] Stat 05/06/25 22:31 XR abdomen 1V Stat 05/07/25 02:13 CT abdomen pelvis w con Stat Discontinued Medications Al Hydrox/Mg Hydrox/Simethicone 20 ml/ Lidocaine HCl 15 ml 0 ml PO NOW ONE Stop: 05/07/25 02:32 Last Admin: 05/07/25 02:47 Dose: 35 ml Vital Signs Vital signs: Vital Signs - 8 hr 05/06/25 21:43 05/07/25 00:53 05/07/25 00:54 Temperature 97.5 F L Pulse Rate 72 76 Respiratory Rate 18 18 Blood Pressure 133/81 Pulse Oximetry 97 96 97 Oxygen Delivery Method Room Air Room Air 05/07/25 00:54 05/07/25 01:00 05/07/25 01:30 Temperature Pulse Rate 72 69 Respiratory Rate Blood Pressure 108/57 L Pulse Oximetry 97 93 Oxygen Delivery Method 05/07/25 02:00 05/07/25 02:23 05/07/25 02:23 Temperature Pulse Rate 68 75 Respiratory Rate 20 Blood Pressure 108/56 L Pulse Oximetry 94 97 Oxygen Delivery Method Room Air Medical Decision Making Lab Data 05/06/25 22:08 05/06/25 22:08 Labs: Lab Results 05/06/25 05/06/25 Range/Units 21:58 22:08 WBC 8.7 (4.5-11.0) X10^3/uL RBC 4.24 (4.0-5.2) X10^6/uL Hgb 13.7 (12.0-16.0) g/dL Hct 39.3 (36-46) % MCV 92.8 (80-100) fL MCH 32.3 (26-34) PG MCHC 34.8 (30-36) % RDW 12.0 (11.6-14.8) % Plt Count 295 (150-400) X10^3/uL Neut % (Auto) 39.1 L (50-75) % Lymph % (Auto) 35.3 (25-40) % [place] % (Auto) 12.2 (3-14) % Eos % (Auto) 12.5 H (2-4) % Baso % (Auto) 0.9 (0-2) % Neut # (Auto) 3400 (8620-7595) /uL Lymph # (Auto) 3100 (1635-8924) /uL [place] # (Auto) 1100 H (0-900) /uL Eos # (Auto) 1100 H (0-450) /uL Baso # (Auto) 100 (0-100) /uL Sodium 137 (137-145) mmol/L Potassium 4.1 (3.4-5.1) mmol/L Chloride 102 (98-107) mmol/L Carbon Dioxide 29 (22-32) mmol/L BUN 15 (7-17) mg/dL Creatinine 0.85 (0.52-1.04) mg/dL Estimated GFR > 60 (>60) mL/min BUN/Creatinine Ratio 17.6 (6-22) Glucose 97 (70-99) mg/dL Calcium 9.4 (8.4-10.2) mg/dL Total Bilirubin 0.7 (0.2-1.3) mg/dL AST 30 (14-36) IU/L ALT 32 (<35) IU/L Alkaline Phosphatase 86 (38-126) U/L Total Protein 7.3 (6.3-8.2) g/dL Albumin 4.4 (3.5-5.0) g/dL Globulin 2.9 (1.7-4.1) g/dL Albumin/Globulin Ratio 1.5 (1.0-2.8) Urine RBC None seen (0-5/HPF) Urine WBC 0-1/hpf (0-5/HPF) Ur Squamous Epith Cells 5-10 /hpf H (0-5/HPF) Urine Bacteria Occasional (0-1) (None) Ur Culture Indicated? Cult not indicated Vol Urine Centrifuged 10ml (spun) Point of Care Testing Test Results Negative Urine Dip Bedside Urine Glucose Negative Bedside Urine Bilirubin - Negative Bedside Urine Ketone - Negative Urine Specific [place] 1.015 Bedside Urine Occult Blood - Negative Bedside Urine pH 6.5 Bedside Urine Protein - Negative Bedside Urine Urobilinogen - Negative Bedside Urine Nitrite - Negative Bedside Urine Leukocytes ++ 125 Esterase Point of care testing: Point of Care Testing Test Results Negative Urine Dip Bedside Urine Glucose Negative Bedside Urine Bilirubin - Negative Bedside Urine Ketone - Negative Urine Specific [place] 1.015 Bedside Urine Occult Blood - Negative Bedside Urine pH 6.5 Bedside Urine Protein - Negative Bedside Urine Urobilinogen - Negative Bedside Urine Nitrite - Negative Bedside Urine Leukocytes ++ 125 Esterase MDM Narrative Medical decision making narrative: CC: Diffuse abdominal pain Complicating co-morbidities: 2 months Data collected from: patient Differential considered: Gallbladder disease, pancreatitis, gastroenteritis, reflux, constipation Exam documented above, pertinent findings include: Abdomen is diffusely tender without rebound or guarding. Slightly more tender in the right upper quadrant Lab Test results independently reviewed as above. Pertinent findings: CBC is unremarkable Chemistries are reassuring Your and has squamous cells, no sign of UTI Urine is negative Imaging studies independently reviewed: Limited abdominal ultrasound shows no gallbladder pathology With continued abdominal pain, and shared decision-making, we opted to proceed with CT scan of the abdomen. CT scan shows no evidence of colitis, diverticulitis, bowel obstruction or obstructive uropathy Treatments: GI cocktail, minimally effective Discussion: Otherwise healthy 39-year-old woman 2 months exclusively increasing abdominal pain, turns out she has had intermittent issues with abdominal bloating pain and discomfort for quite awhile. She has figured out that there are definitely foods seem to make things worse, she has been trying to modify her diet, is using probiotics and some gut cleanse supplements to help. At this point reassurance is given regarding normal blood work, normal ultrasound and normal CT scan of the abdomen. We discussed the fact that at 2 months her hormones are almost non-existent which we are going to contribute to overall health and well-being concerns as well. She has quite a bit of stress in her life to compound each of these factors. At this time there is no indication and that she has infection, obstruction, abscess or anything that would require hospitalization or further imaging. Questions are answered and she is safe for discharge Discharge Plan Departure Patient Disposition: Home Clinical Impression: Abdominal pain Qualifiers: Abdominal location: generalized Qualified Code(s): R10.84 - Generalized abdominal pain Instructions: DI for Abdominal Pain-Adult Activity Restrictions/Additional Instructions: Thank you for coming in today I am sorry that you are having so much abdominal bloating and discomfort. Your workup today was actually quite reassuring. There was no sign of kidney problems, liver abnormalities, anemia, infection. Your gallbladder looks healthy. Your CT scan of your belly does not show any acute masses, obstructions or abscesses. 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 I think that approaching overall stress levels, sleep, getting back to exercise routines with which you were comfortable, continuing the probiotic and gut cleanse regimen that you are using can all be quite helpful. If you feel that you are constipated, your CT scan does not suggest this, you can try MiraLax to see if it helps clean out your colon and alleviate any of your bloating symptoms. Do continue to pay attention to foods that you were eating to see if there is something that seems to make things worse. I would encourage you to follow up with your primary care physician, if you find that you are having new symptoms or worsening pain please feel free to return to the ER Prescriptions: No Action methylprednisolone [Medrol (German)] 4 mg tablets,dose pack See Rx Instructions .ROUTE .COMPLEX Qty: 21 0RF Rx Instructions: orally per package directions cyclobenzaprine 10 mg tablet 10 mg PO TID PRN (Reason: muscle spasm) Qty: 30 0RF azithromycin 500 mg tablet See Rx Instructions .ROUTE .COMPLEX Qty: 3 0RF Rx Instructions: For 500 mg dose pack: take 500 mg once daily for 3 days Referrals: Yefri Martinez MD [Primary Care Provider, Family Practice] Stand Alone Forms: Patient Portal/API
--- NOTE | 2025-05-06 22:31 | DI.RAD.S_ITS ---
PROCEDURE: XR ABDOMEN 1V INDICATIONS: abdominal pain TECHNIQUE: One view of the abdomen acquired. COMPARISON: None. FINDINGS: Surgical changes and devices: None. Bowel: No dilated air-filled bowel loops. Scattered air-fluid levels are present. Soft tissues: No suspicious abdominal calcifications. Visualized solid organ contours appear normal in size. Bones: No suspicious bony lesions. IMPRESSION: Bowel gas pattern suggestive of enteritis or ileus. No radiographic finding of obstruction. Dictated by: Aida Garcia M.D. on 05/06/2025 at 23:56 Approved by: Aida Garcia M.D. on 05/06/2025 at 23:57
[2025-05-06 22:42] LABS: Bacteria Urine Occasional (0-1); RBC Urine None Seen (0-5/HPF); Urine Volume 10mL (spun); WBC Urine 0-1/HPF (0-5/HPF)
[2025-05-06 22:43] LABS: Culture Indicated Urine Cult Not Indicated; Squamous Epithelial Cell Urine 5-10 /HPF (0-5/HPF)
[2025-05-07 00:53] VITALS: O2SAT 96
[2025-05-07 00:54] VITALS: BP 108/57; PULSE 76; RESP 18; O2SAT 97
[2025-05-07 01:00] VITALS: PULSE 72; O2SAT 97
[2025-05-07 01:30] VITALS: PULSE 69; O2SAT 93
[2025-05-07 02:00] VITALS: PULSE 68; O2SAT 94
--- NOTE | 2025-05-07 02:13 | DI.CT.S_ITS ---
PROCEDURE: CT ABDOMEN PELVIS W CON INDICATIONS: abdominal pain TECHNIQUE: After the administration of intravenous contrast, axial sections acquired from the lung bases to the pubic symphysis. Coronal and sagittal reformats were performed. For radiation dose reduction, the following was used: automated exposure control, adjustment of mA and/or kV according to patient size. COMPARISON: [facility], CT, CT ABDOMEN PELVIS W CON, 03/26/2024, 12:57. FINDINGS: Image quality: Diagnostic. Lower Chest: Bilateral breast implants. ABDOMEN: Liver: Subcentimeter hypoattenuating lesion in segment 4 of the liver, presumably a small cyst. Gallbladder: No radiopaque gallstones or wall thickening. Biliary ducts: No biliary dilation. Pancreas: No ductal dilation. Spleen: Size is within normal limits. Adrenal Glands: No adrenal nodules. Kidneys and Ureters: No hydronephrosis. No solid mass. No complex renal cystic lesion which requires follow up. Stomach and Bowel: Normal colonic caliber, without significant wall thickening. Normal appendix Peritoneum: No abnormal intraperitoneal fluid. No free air. Ventral Wall: No significant ventral hernia. Abdominal Nodes: No retroperitoneal or mesenteric adenopathy by size criteria. Vessels: Aorta and inferior vena cava are normal in size. PELVIS: Pelvic Organs: Mildly enlarged uterus, within normal limits given recent gestation. Bladder: No bladder wall thickening, accounting for underdistention. Pelvic Nodes: No enlarged lymph nodes. Miscellaneous: No inguinal hernias are seen. Bones: No aggressive osseous abnormality. IMPRESSION: No acute abnormality. Agree with preliminary report. Dictated by: Hemanth Kaye M.D. on 05/07/2025 at 8:12 Approved by: Hemanth Kaye M.D. on 05/07/2025 at 8:14
[2025-05-07 02:23] VITALS: BP 108/56; PULSE 75; RESP 20; O2SAT 97
--- NOTE | 2025-05-07 02:26 | PC.NURSE ---
Pt ambulatory to imaging with dealer support technician
[2025-05-07] MEDS: MAG HYDROX/ALUMINUM/SIMETH SUS 20 ML, LIDOCAINE VISCOUS 2% 15 ML PO (02:47)
== END 2025-05-07 03:39 | disposition home or self-care (01) ==
PROVIDERS: Emergency Provider Emergency Medicine; Family Provider Family Medicine; PCP Family Medicine
DX: R10.84 Generalized abdominal pain (principal); R19.7 Diarrhea, unspecified
CPT/HCPCS: 74018; 74177; 76705; 80053; 81003; 81015; 81025; 85025; 99283; 99284; Q9967

== ENCOUNTER 2025-10-30 15:08 | Emergency (ER) | payer OTHER, SELFPAY ==
[2025-10-30] VITALS (12 sets, daily range): BP systolic 109–131; BP diastolic 67–88; PULSE 70–85; RESP 13–24; TEMP 36.8; O2SAT 96–100; BMI 38.0
--- NOTE | 2025-10-30 15:22 | EKG_ITS ---
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
--- NOTE | 2025-10-30 17:49 | DI.RAD.S_ITS ---
PROCEDURE: XR CHEST 1V INDICATIONS: Chest Pain TECHNIQUE: One view of the chest was acquired. COMPARISON: None. FINDINGS: Surgical changes and devices: None. Lungs and pleura: Lungs are clear. No pleural effusions or pneumothorax. Mediastinum: Mediastinal contours appear normal. Heart size is normal. Bones and chest wall: No suspicious bony lesions. Overlying soft tissues appear unremarkable. IMPRESSION: No acute cardiopulmonary abnormality is seen. Dictated by: Tonny Tello M.D. on 10/30/2025 at 17:07 Approved by: Tonny Tello M.D. on 10/30/2025 at 17:08
[2025-10-30 17:59] LABS: Add Manual Diff / Slide Review NO; Hematocrit 40.2 % (36-46); Hemoglobin 14.0 g/dL (12.0-16.0); Lymphocytes Absolute Auto 2200 /uL (1100-4500); Mean Corpuscular HGB Conc 34.9 % (30-36); Mean Corpuscular Hemoglobin 31.8 PG (26-34); Mean Corpuscular Volume 91.1 fL (80-100); Platelet Count 271 X10^3/uL (150-400)
[2025-10-30 18:08] LABS: INR 1.0 (0.9-1.3); Prothrombin Time 11.7 SECONDS (9.4-12.5)
[2025-10-30 18:09] LABS: Alanine Aminotransferase 21 IU/L (<35); Albumin 4.9 g/dL (3.5-5.0); Albumin Globulin Ratio 1.5 (1.0-2.8); Alkaline Phosphatase 67 U/L (38-126); Blood Urea Nitrogen 16 mg/dL (7-17); Calcium 9.8 mg/dL (8.4-10.2); Carbon Dioxide 27 mmol/L (22-32); Chloride 105 mmol/L (98-107); Creatine Kinase 76 U/L (30-135); Estimated Glomerular Filt Rate > 60 mL/min (>60); Globulin 3.2 g/dL (1.7-4.1); Glucose 98 mg/dL (70-99); Lipase 150 U/L (23-300); Magnesium 1.7 mg/dL (1.6-2.3); Potassium 3.8 mmol/L (3.4-5.1); Sodium 140 mmol/L (137-145); Total Protein 8.1 g/dL (6.3-8.2)
[2025-10-30 18:10] LABS: PTT Partial Thromboplastin Tim 27 SECONDS (25.1-36.5)
--- NOTE | 2025-10-30 18:11 | EKG_ITS ---
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
[2025-10-30 18:18] LABS: HEMOLYSIS < 15 (0-50); NT-proBNP (BNP-Adult 18+) < 20 pg/mL (<125)
[2025-10-30 18:20] LABS: Troponin I < 0.012 ng/mL (0.01-0.034)
[2025-10-30] MEDS: ASPIRIN 81 MG CHEW TAB 324 MG PO (18:20)
--- NOTE | 2025-10-30 18:35 | ED_ITS ---
HPI - Chest Pain General Chief Complaint: Chest Pain Stated Complaint: Chest px / weakness / dizzy Time Seen by Provider: 10/30/25 18:05 Source: patient Mode of arrival: Ambulatory Limitations: no limitations History of Present Illness HPI narrative: 40-year-old female with no past medical history presents with left arm pain that started couple of days ago and then today started with some generalized upper neck pain and chest tightness that has been lasting all day. She does admit to quite a bit of stress recently. No family history or other risk factors for cardiac disease Related Data Previous Rx's ?Medication ?Instructions ?Recorded azithromycin 500 mg tablet See Rx Instructions PO .COM PLEX #3 03/26/24 tabs cyclobenzaprine 10 mg tablet 10 mg PO TID PRN muscle s pasm #30 05/19/24 tabs methylprednisolone 4 mg tablets in See Rx Instructions PO .COMPLEX 05/19/24 a dose pack (Medrol (German)) #21 ea cyclobenzaprine 10 mg tablet 10 mg PO TID PRN muscle s pasm #14 10/30/25 tabs Allergies Allergy/AdvReac Type Severity Reaction Status Date / Time latex Allergy Verified 03/26/24 10:47 Review of Systems Review of Systems ROS Unobtainable: All systems reviewed & are unremarkable except as noted in HPI and below Patient History Social History Smoking Status: Never smoker Smoking Status: Never smoker alcohol intake frequency: holidays/special occasions only Exam Narrative Exam Narrative: General: Patient appears to be in no acute distress, acting appropriately Head: normocephalic, atraumatic, HEENT: Pupils equal round reactive, eyes tracking well, neck supple, no JVD Heart: regular rate and rhythm, no murmurs, rubs, or gallops heard Lungs: clear to auscultation, no adventitious sounds Abdomen: soft , nontender, nondistended, positive bowel sounds Neurological: no focal neurological signs, moving all extremities well, alert and oriented x3, Psych: good judgment ,good insight, mood is normal. Initial Vital Signs Initial Vital Signs: Vital Signs Temperature 98.3 F 10/30/25 15:15 Pulse Rate 85 10/30/25 15:15 Respiratory Rate 18 10/30/25 15:15 Blood Pressure 129/88 10/30/25 15:15 Pulse Oximetry 97 10/30/25 15:15 Oxygen Delivery Method Room Air 10/30/25 15:15 Scores HEART Score Heart Score history: Slightly Suspicious Heart Score EKG: Normal Heart Score Age: < 45 years old Heart Score risk factors: No known risk factors Heart Score troponin: < or = to normal limit Heart Score Total: 0 Course Orders Ordered: ED Orders 10/30/25 17:45 Complete Blood Count AUTO DIFF Stat Comprehensive Metabolic Panel Stat Lipase Stat Magnesium Stat NT-proBNP (BNP-Adult 18+) Stat PTT Partial Thromboplastin Gerald Stat Prothrombin Time INR Stat Troponin & CK Cardiac Panel Stat 10/30/25 17:49 XR chest 1V Stat EKG-12 Lead Stat 10/30/25 18:05 EKG-12 Lead Stat 10/30/25 19:42 Trop I [Troponin I] Stat Discontinued Medications Aspirin (Aspirin 81 Mg Chew Tab) 324 mg PO NOW ONE Stop: 10/30/25 17:49 Last Admin: 10/30/25 18:20 Dose: 324 mg Documented By: OCTAVIO Ketorolac Tromethamine (Ketorolac 30 Mg/Ml Vial) 15 mg IV NOW ONE Stop: 10/30/25 18:35 Last Admin: 10/30/25 19:06 Dose: 15 mg Documented By: OCTAVIO Reevaluation(s) Reevaluation #1: upon re-evaluation, patient's pain has improved with some Toradol. Vital Signs Vital signs: Vital Signs - 8 hr 10/30/25 17:25 10/30/25 17:25 10/30/25 17:30 Pulse Rate 70 80 Respiratory Rate 13 19 Blood Pressure 120/75 Pulse Oximetry 100 98 10/30/25 17:30 10/30/25 18:00 10/30/25 18:00 Pulse Rate 80 Respiratory Rate 17 Blood Pressure 124/82 129/82 Pulse Oximetry 99 10/30/25 18:14 10/30/25 18:14 10/30/25 18:30 Pulse Rate 78 82 Respiratory Rate 19 19 Blood Pressure 131/81 Pulse Oximetry 100 97 10/30/25 18:30 10/30/25 19:00 10/30/25 19:00 Pulse Rate 82 Respiratory Rate 23 Blood Pressure 126/81 120/84 Pulse Oximetry 97 10/30/25 19:30 10/30/25 19:30 10/30/25 20:00 Pulse Rate 76 81 Respiratory Rate 16 20 Blood Pressure 109/71 Pulse Oximetry 96 97 10/30/25 20:00 10/30/25 20:30 10/30/25 20:30 Pulse Rate 78 Respiratory Rate 24 Blood Pressure 117/76 118/67 Pulse Oximetry 96 MDM - Chest Pain Lab Data 10/30/25 17:45 10/30/25 17:45 Labs: Lab Results 10/30/25 10/30/25 Range/Units 17:45 19:42 WBC 7.4 (4.5-11.0) X10^3/uL RBC 4.41 (4.0-5.2) X10^6/uL Hgb 14.0 (12.0-16.0) g/dL Hct 40.2 (36-46) % MCV 91.1 (80-100) fL MCH 31.8 (26-34) PG MCHC 34.9 (30-36) % RDW 12.5 (11.6-14.8) % Plt Count 271 (150-400) X10^3/uL Neut % (Auto) 54.1 (50-75) % Lymph % (Auto) 30.2 (25-40) % [place] % (Auto) 11.9 (3-14) % Eos % (Auto) 3.0 (2-4) % Baso % (Auto) 0.8 (0-2) % Neut # (Auto) 4000 (3880-5382) /uL Lymph # (Auto) 2200 (9610-8344) /uL [place] # (Auto) 900 (0-900) /uL Eos # (Auto) 200 (0-450) /uL Baso # (Auto) 100 (0-100) /uL PT 11.7 (9.4-12.5) SECONDS INR 1.0 (0.9-1.3) APTT 27 (25.1-36.5) SECONDS Sodium 140 (137-145) mmol/L Potassium 3.8 (3.4-5.1) mmol/L Chloride 105 (98-107) mmol/L Carbon Dioxide 27 (22-32) mmol/L BUN 16 (7-17) mg/dL Creatinine 0.91 (0.52-1.04) mg/dL Estimated GFR > 60 (>60) mL/min BUN/Creatinine Ratio 17.6 (6-22) Glucose 98 (70-99) mg/dL Calcium 9.8 (8.4-10.2) mg/dL Magnesium 1.7 (1.6-2.3) mg/dL Total Bilirubin 0.4 (0.2-1.3) mg/dL AST 22 (14-36) IU/L ALT 21 (<35) IU/L Alkaline Phosphatase 67 (38-126) U/L Total Creatine Kinase 76 (30-135) U/L Troponin I < 0.012 < 0.012 (0.01-0.034) ng/mL NT-Pro-B Natriuret Pep < 20 (<125) pg/mL Total Protein 8.1 (6.3-8.2) g/dL Albumin 4.9 (3.5-5.0) g/dL Globulin 3.2 (1.7-4.1) g/dL Albumin/Globulin Ratio 1.5 (1.0-2.8) Lipase 150 (23-300) U/L Imaging Data Chest x-ray: Radiologist's Impression: No acute cardiopulmonary abnormality seen. ECG Data Interpretation: EKG shows a normal sinus rhythm with normal axis. Rate of 75 beats per minute. Normal NV intervals no STT wave changes. No previous EKG to compare with. MDM Narrative Medical decision making narrative: 40-year-old female with no cardiac history and a heart score of 0 whose chest pain improved with some Toradol most likely dealing with some neck tightness or muscular strain. Patient given some Flexeril to use as needed. will follow up for worsening pain. Discharge Plan Departure Patient Disposition: Home Clinical Impression: Cervical muscle pain, Chest tightness Instructions: DI for Atypical Chest Pain Activity Restrictions/Additional Instructions: Use muscle relaxants as needed as needed. Pain is less likely cardiac in origin. If pain resumes or chest tightness gets worse please come straight back to the er. Otherwise can follow up with PCP. Prescriptions: New cyclobenzaprine 10 mg tablet 10 mg PO TID PRN (Reason: muscle spasm) Qty: 14 0RF No Action methylprednisolone [Medrol (German)] 4 mg tablets,dose pack See Rx Instructions .ROUTE .COMPLEX Qty: 21 0RF Rx Instructions: orally per package directions cyclobenzaprine 10 mg tablet 10 mg PO TID PRN (Reason: muscle spasm) Qty: 30 0RF azithromycin 500 mg tablet See Rx Instructions .ROUTE .COMPLEX Qty: 3 0RF Rx Instructions: For 500 mg dose pack: take 500 mg once daily for 3 days Referrals: Yefri Martinez MD [Primary Care Provider, Family Practice] Stand Alone Forms: Patient Portal/API
[2025-10-30] MEDS: KETOROLAC 30 MG/ML VIAL 15 MG IV (19:06)
[2025-10-30 20:15] LABS: Troponin I < 0.012 ng/mL (0.01-0.034)
== END 2025-10-30 20:46 | disposition home or self-care (01) ==
PROVIDERS: Emergency Medicine; Emergency Provider Family Medicine; Family Provider Family Medicine; PCP Family Medicine
DX: M79.602 Pain in left arm (principal); M54.2 Cervicalgia; R07.89 Other chest pain
CPT/HCPCS: 36415; 71045; 80053; 82550; 83690; 83735; 83880; 84484; 85025; 85610; 85730; 93005; 93010; 96374; 99284; J1885